=== PATIENT | male | born 1995 ===

== ENCOUNTER 2021-02-11 00:18 | Emergency (ER) | payer BC, OTHER ==
[~2021-02-11] VITALS: Ht 170.2 cm; Wt 59.1 kg
[2021-02-11 00:48] LABS: BASOPHILS % (AUTO) 0.7 % (0.0-2.0); HEMATOCRIT 44.1 % (41-53); HEMOGLOBIN 15.1 g/dL (13.5-17.5); LYMPHOCYTES # (AUTO) 3.4 K/uL (1.0-4.8); LYMPHOCYTES % (AUTO) 41.4 % (22.0-44.0); MEAN CORPUSCULAR HEMOGLOBIN 30.9 pg (26.0-34.0); MEAN CORPUSCULAR HGB CONC 34.2 G/dL (31.0-37.0); MEAN CORPUSCULAR VOLUME 91 fL (80-100); MONOCYTES # (AUTO) 0.8 K/uL (0.1-1.0); MONOCYTES % (AUTO) 10.3 % (2.0-9.0); NEUTROPHILS # (AUTO) 3.6 K/uL (1.8-7.7); NEUTROPHILS % (AUTO) 43.6 % (40.0-70.0); PLATELET COUNT (AUTO) 227 K/uL (150-450); RED BLOOD CELL COUNT(AUTO) 4.87 MIL/uL (4.50-5.90); RED CELL DISTRIBUTION WIDTH 12.8 % (11.5-14.5)
[2021-02-11 00:59] LABS: ABG A-A DIFF O2 3.8 mmHg (10-20.0); ABG BASE EXCESS -2.3 mmol/L (-2.0-3.0); ABG CARBOXYHEMOGLOBIN 0.3 % (0.0-3.0); ABG HCO3 22.9 mmol/L (22.0-26.0); ABG METHEMOGLOBIN 0.2 % (0.0-1.5); ABG OXYGEN SATURATION 97.7 % (95.0-98.0); ABG OXYHEMOGLOBIN 97.2 % (94.0-100.0); ABG PCO2 38 mmHg (35-45); ABG PH 7.389 (7.350-7.450); ABG TOTAL HEMOGLOBIN 15.3 G/dL (12.0-18.0); PO2, ARTERIAL BG 100.1 mmHg (80.0-100.0); SOURCE, BLOOD GAS ARTERIAL; TEMPERATURE, FAHRENHEIT, BG 98.5 FAHREN (96.0-98.6)
[2021-02-11 01:00] LABS: O2 DEVICE,BLOOD GAS ROOM AIR (ROOM AIR); SITE, BLOOD GAS LFT RADIAL
[2021-02-11] MEDS ORDERED: ACETAMINOPHEN 500 MG TABLET PO ONE (01:00)
[2021-02-11 01:34] LABS: ANION GAP 8 mmol/L (8-16); CALCIUM, TOTAL 9.3 mg/dL (8.8-10.5); CARBON DIOXIDE 28 mmol/L (22-29); CHLORIDE 103 mmol/L (98-107); CREATININE 0.95 mg/dL (0.60-1.30); GLOMERULAR FILTR. RATE CALC > 60 mL/min (>60); GLUCOSE,RANDOM 95 mg/dL (70-110); POTASSIUM 3.9 mmol/L (3.5-5.1); SODIUM SERUM 139 mmol/L (136-145); UREA NITROGEN, BLOOD 16 mg/dL (7-18)
[2021-02-11 01:59] LABS: ALANINE AMINOTRANSFERASE 25 U/L (12-78); ALBUMIN 4.3 g/dL (3.4-5.0); ALKALINE PHOSPHATASE 121 U/L (46-116); ASPARTATE AMINOTRANSFERASE 16 U/L (15-37); BILIRUBIN,TOTAL 0.2 mg/dL (0.1-1.0); CREATINE KINASE, TOTAL ONLY 94 U/L (39-308); TOTAL PROTEIN, SERUM 7.9 g/dL (6.4-8.2)
[2021-02-11 02:00] VITALS: BP 110/62
== END 2021-02-11 02:45 | disposition home or self-care (01) ==
LOC: EMS 00:20
DX: R11.0 Nausea (principal); R51.9 Headache, unspecified; R53.83 Other fatigue; Z57.39 Occupational exposure to other air contaminants
CPT/HCPCS: 36415; 36600; 80053; 82550; 82805; 85025; 93005; 99284; G0480